=== PATIENT | female | born 1950 | race Two or more races ===

== ENCOUNTER 2020-10-06 23:38 | Emergency (ER) | payer OTHER ==
[~2020-10-06] VITALS: Ht 160 cm; Wt 72.6 kg
[2020-10-07 01:17] LABS: Basophils # (auto) 0.1 10 ^3/uL (0-0.2); Basophils % (auto) 0.7 % (0.0-2.0); Eosinophils # (auto) 0.3 10 ^3/uL (0-0.8); Eosinophils % (auto) 3.1 % (0.0-7.0); Hematocrit 37.8 % (36.0-46.0); Hemoglobin 12.4 g/dL (12.2-16.2); Lymphocytes # (auto) 1.3 10 ^3/uL (0.4-5.4); Lymphocytes % (auto) 11.7 % (10.0-50.0); Mean Corpuscular Hgb Conc. 32.9 g/dL (32.0-36.0); Monocytes # (auto) 0.6 10 ^3/uL (0-1.3); Monocytes % (auto) 5.6 % (0.0-12.0); Neutrophils # (auto) 8.6 10 ^3/uL (1.6-8.6); Neutrophils % (auto) 78.9 % (37.0-80.0); Nucleated Red Blood Cells % 0.1 %; Red Blood Cells 4.29 10^6/uL (4.0-5.20); Red Cell Distribution Width 14.2 % (11.8-14.3); White Blood Cell 10.9 10^3/uL (4.4-10.8)
[2020-10-07 01:37] LABS: Alanine Aminotransferase 17 U/L (13-56); Albumin 3.3 g/dL (3.4-5.0); Anion Gap 6 (5-15); Aspartate Aminotransferase 10 U/L (15-37); BUN/Creatinine Ratio 12.9; Blood Urea Nitrogen 11 mg/dL (7-18); Calcium 8.9 mg/dL (8.5-10.1); Carbon Dioxide 26 mmol/L (21-32); Chloride 103 mmol/L (98-107); GFR African American 85 mL/min; GFR Non-African American 70 mL/min; Glucose 203 mg/dL (74-106); Magnesium 2.1 mg/dL (1.6-2.6); Potassium 4.4 mmol/L (3.5-5.1); Sodium 135 mmol/L (136-145)
[2020-10-07 01:42] LABS: Alkaline Phosphatase 87 U/L (45-117); Bilirubin, Total 0.3 mg/dL (0.2-1.0); Total Protein 7.3 g/dL (6.4-8.2)
[2020-10-07] MEDS ORDERED: ALBUTEROL SULF 2.5 MG/0.5ML(0.5%) NEB SOLN NEB ONE (03:00)
[2020-10-07 03:10] VITALS: BP 125/57
== END 2020-10-07 02:53 | disposition home or self-care (01) ==
LOC: ER 23:38
DX: J06.9 Acute upper respiratory infection, unspecified (principal); I11.0 Hypertensive heart disease with heart failure; I50.9 Heart failure, unspecified; E11.9 Type 2 diabetes mellitus without complications
CPT/HCPCS: 36415; 71045; 80053; 83735; 83880; 84484; 85025; 85049; 93005; 94640